=== PATIENT | female | born 1985 | race African-American/Black ===

== ENCOUNTER → 2017-11-30 | Outpatient (REF) | payer BC ==
[2017-12-02 14:17] LABS: HPV HYBRID CAPTURE II Negative (Negative)
== END ==
LOC: M LAB REF 14:44
DX: Z11.51 Encounter for screening for human papillomavirus (HPV) (principal)
CPT/HCPCS: G0123

== ENCOUNTER → 2017-12-03 | Outpatient (CLI) | payer BC | LOC: M RAD 17:29 | DX: D25.2 Subserosal leiomyoma of uterus (principal); N83.202 Unspecified ovarian cyst, left side; Z97.5 Presence of (intrauterine) contraceptive device | CPT/HCPCS: 76856 ==

== ENCOUNTER 2018-03-30 16:33 | Emergency (ER) | payer OTHER, BC | END 2018-03-30 20:09 | disposition home or self-care (01) | LOC: M ED 16:33 | DX: S06.0X0A Concussion without loss of consciousness, initial encounter (principal); S80.11XA Contusion of right lower leg, initial encounter; V43.52XA Car driver injured in collision with other type car in traffic accident, initial encounter; Y92.410 Unspecified street and highway as the place of occurrence of the external cause; Y93.9 Activity, unspecified; Y99.9 Unspecified external cause status | CPT/HCPCS: 72125 ==

== ENCOUNTER → 2018-11-16 | Outpatient (CLI) | payer BC ==
[~2018-11-16] MED LIST: CYCL5TAB PO; NAPR-50 PO
[2018-11-16 08:51] LABS: HEMATOCRIT 35.1 % (36.0-47.0); HEMOGLOBIN 10.9 g/dl (12.0-15.5); MEAN CORPUSCULAR HEMOGLOBIN 25.8 pg (27.0-33.0); MEAN CORPUSCULAR HGB CONC 31.1 g/dl (32.0-36.5); MEAN CORPUSCULAR VOLUME 83.2 fl (80.0-96.0); PLATELET COUNT, AUTOMATED 276 10^3/uL (150-450); RED BLOOD COUNT 4.22 10^6/uL (4.00-5.40); WHITE BLOOD COUNT 4.3 10^3/uL (4.0-10.0)
[2018-11-16 09:21] LABS: ALBUMIN 3.7 GM/DL (3.2-5.2); ALT/SGPT 17 U/L (12-78); BILIRUBIN,TOTAL 0.3 MG/DL (0.2-1.0); BLOOD UREA NITROGEN 9 MG/DL (7-18); CALCIUM LEVEL 8.9 MG/DL (8.5-10.1); CARBON DIOXIDE LEVEL 27 MEQ/L (21-32); CHLORIDE LEVEL 105 MEQ/L (98-107); CHOLESTEROL LEVEL 168 MG/DL (<200); CREATININE FOR GFR 0.82 MG/DL (0.55-1.30); GLOMERULAR FILTRATION RATE > 60.0 (>60); GLUCOSE, FASTING 86 MG/DL (70-100); HDL CHOLESTEROL 56 MG/DL (>40); IRON (FE) 30 UG/DL (50-170); LDL CHOLESTEROL 100 MG/DL (<100); NON-HDL-C 112 MG/DL; PERCENT SATURATION 7.4 % (13.2-45.0); POTASSIUM SERUM 4.3 MEQ/L (3.5-5.1); SODIUM LEVEL 138 MEQ/L (136-145); THYROID STIMULATING HORMONE 0.953 uIU/ML (0.358-3.740); TOTAL IRON BINDING CAPACITY 407 UG/DL (250-450); TRIGLYCERIDES LEVEL 59 MG/DL (<150)
[2018-11-16 10:22] LABS: TOTAL 25(OH) VITAMIN D 27.7 NG/ML (30.0-100.0)
[2018-11-16 17:19] LABS: HEMOGLOBIN A1c 5.8 %
[2018-11-18 07:44] LABS: VITAMIN B12 LEVEL 697 PG/ML (232-1245)
== END ==
LOC: M LAB 07:54
PROVIDERS: ATTEND Family Medicine
DX: R53.83 Other fatigue (principal); E03.9 Hypothyroidism, unspecified; D64.9 Anemia, unspecified

== ENCOUNTER → 2019-06-13 | Outpatient (POV) | payer BC ==
[~2019-06-13] VITALS: Ht 160 cm; Wt 74.5 kg
[~2019-06-13] MED LIST changes: +KETO10TAB PO; -NAPR-50 PO; +NAPR-837 PO; +PERCOCET PO; +ZOFR4TAB16 PO
[2019-06-13 11:07] VITALS: BP 134/75
--- NOTE | 2019-06-14 08:45 | IRCOV ---
[facility] IR Consult Office Visit IR Consult Office Visit DATE: Jun 13, 2019 REASON FOR CONSULTATION/CHIEF COMPLAINT: Menorrhagia. HISTORY OF PRESENT ILLNESS: 33 female presents with 2 years of intensely heavy periods. Patient describes using tampons and pads in unison. She reports soaking through a pack of tampons as well as heavy-duty pads per hour for at least 2 days every month. Feels fatigued at times of cycles. History of anemia but intolerant of iron tablets. Mild cramping associated with cycles. Describes deep dyspareunia. Also feels bloated and all the time. No problems with urination or defecation. No prior pregnancies and does not plan to have children. Compliant with Pap smears and no history of abnormal Pap smears. Patient is otherwise active and healthy. Works out every day. ALLERGIES: Please see below. HOME MEDICATIONS: Please see below. PAST MEDICAL HISTORY: 1. Nonsignificant. PAST SURGICAL HISTORY: 1. Nonsignificant. FAMILY HISTORY: Mother had fibroids. SOCIAL HISTORY: Lives with fiance. Nonsmoker, no alcohol no drugs. REVIEW OF SYSTEMS: Otherwise negative. PHYSICAL EXAMINATION: VITAL SIGNS: Please see below. GENERAL APPEARANCE: Comfortable at rest. HEENT: No scleral icterus. RESPIRATORY: Clear breath sounds bilaterally. CARDIOVASCULAR: Normal heart rate. ABDOMEN: Soft nontender. Firmness to pelvis. EXTREMITIES: No edema. Calf nontender. NEUROLOGICAL: Alert and oriented. PSYCHIATRIC: Appropriate to circumstance. LABORATORY DATA: Please see below. Imaging: I personally reviewed the most recent ultrasound of the pelvis. There are fibroids present within the uterus. On physical examination, these are likely increased in size from time of imaging. ASSESSMENT/PLAN: 33 female otherwise fit and healthy presents with torrential menorrhagia, anemia and known fibroids. Patient would benefit from uterine f ibroid embolization. We discussed the risks and benefits of the procedure and what to expect. Patient would like to proceed. I will schedule the patient for the procedure under moderate sedation. I spent 30 minutes in consultation with the patient. Thank you for this referral. Allergies Coded Allergies: No Known Allergies (Unverified , 12/08/17) Home Medications Scheduled PRN Cyclobenzaprine HCl (Cyclobenzaprine HCl), 5 MG PO QHSP PRN for PAIN Naproxen (Naprosyn), 500 MG PO Q12HP PRN for PAIN VS, I&O, 24H, Fishbone Vital Signs/I&O Vital Signs Date Time Temp Pulse Resp B/P (MAP) Pulse Ox O2 Delivery O2 Flow Rate FiO2 06/13/19 11:07 98.9 73 16 134/75 (94) 100 MARÍA FRYE MD Jun 14, 2019 08:45
== END ==
LOC: M IRPOV 10:59
PROVIDERS: ATTEND Radiology Diagnostic Radiology
DX: N92.0 Excessive and frequent menstruation with regular cycle (principal); D25.9 Leiomyoma of uterus, unspecified; D64.9 Anemia, unspecified

== ENCOUNTER 2019-07-07 06:00 | Observation (INO) | payer BC ==
[~2019-07-07] VITALS: Ht 160 cm; Wt 68.0 kg
[~2019-07-07 06:00] MED LIST changes: -KETO10TAB PO; -PERCOCET PO; -ZOFR4TAB16 PO
[2019-07-07] MEDS ORDERED: KETOROLAC 30 MG/ML VIAL (J1885) IV SCH (06:45)
[2019-07-07] MEDS ORDERED: NITROGLYCERIN IN D5W 25MG/250ML (100MCG/ML) IV ONE (06:45)
[2019-07-07] MEDS ORDERED: VERAPAMIL HCL 5 MG/2 ML VIAL IV ONE (06:45)
[2019-07-07] MEDS ORDERED: HEPARIN SOD (PORCINE) 5000 UNITS/ML VIAL IV ONE (06:45)
[2019-07-07] MEDS ORDERED: VANCOMYCIN HCL 500 MG/10 ML VIAL (J3370) As Ordered ONE (06:45)
[2019-07-07] MEDS ORDERED: diphenhydrAMINE INJ 50MG/ML VIAL (J1200) IV ONE (06:45)
[2019-07-07] MEDS ORDERED: ceFAZolin 1GM INJ (J0690 PER 500MG) As Ordered ONE (06:49)
[2019-07-07] MEDS ORDERED: diphenhydrAMINE INJ 50MG/ML VIAL (J1200) As Ordered ONE (06:54)
[2019-07-07] MEDS ORDERED: fentaNYL 100 MCG/2 ML INJECTION (J3010) As Ordered ONE ×2 (06:55→08:54)
[2019-07-07] MEDS ORDERED: ISOVUE-300 61% 50ML VIAL (Q9967) As Ordered ONE ×3 (06:55→08:34)
[2019-07-07] MEDS ORDERED: LIDOCAINE 1% MDV 20ML VIAL As Ordered ONE (06:55)
[2019-07-07] MEDS ORDERED: MIDAZOLAM INJ 2 MG/2 ML VIAL (J2250) As Ordered ONE ×2 (06:55→08:54)
[2019-07-07] MEDS ORDERED: KETOROLAC 30 MG/ML VIAL (J1885) As Ordered ONE (07:01)
[2019-07-07] MEDS ORDERED: NITROGLYCERIN IN D5W 25MG/250ML (100MCG/ML) As Ordered ONE (07:01)
[2019-07-07] MEDS ORDERED: HEPARIN 1,000 UNITS/ML 10ML VIAL (FOR RADIOLOGY& DIALYSIS ONLY) As Ordered ONE (07:01)
[2019-07-07] MEDS ORDERED: EMBOSPHERE MICROSPHERES 500-700UM(MICRONS) 2ML SYRINGE As Ordered ONE ×2 (08:19→08:33)
--- NOTE | 2019-07-07 09:55 | POST-OPPD ---
Postoperative Procedure Note Date Of Procedure: Jul 07, 2019 Time Of Procedure: 09:54 PREOPERATIVE DIAGNOSIS: uterine fibroids. menorrhagia POSTOPERATIVE DIAGNOSIS: uterine fibroids. menorrhagia FINDINGS: hypertrophied uterine arteries and fibroids. PROCEDURE: GINA SURGEON: melissa ANESTHESIA: moderate sedation ESTIMATED BLOOD LOSS: < 5 ml COMPLICATIONS: none POSTOPERATIVE CONDITION: stable MARÍA FRYE MD Jul 07, 2019 09:55
[2019-07-07] MEDS ORDERED: PERCOCET 5MG/325MG TAB As Ordered ONE ×2 (10:19→12:47)
[2019-07-07] MEDS ORDERED: PROMETHAZINE INJ 25 MG/ML VIAL (J2550) As Ordered ONE (10:33)
[2019-07-07] MEDS ORDERED: NS 1,000 ML IV SCH (11:15)
[2019-07-07] MEDS ORDERED: PROMETHAZINE INJ 25 MG/ML VIAL (J2550) IV PRN (11:30)
[2019-07-07] MEDS ORDERED: ONDANSETRON 4MG/2ML VIAL (J2405) IV PRN (11:30)
[2019-07-07] MEDS ORDERED: PILL CUTTER 1 EACH XX PRN (12:00)
[2019-07-07] MEDS ORDERED: HYDROmorphone 2 MG TAB PO PRN (12:00)
[2019-07-07] MEDS ORDERED: PROMETHAZINE 25 MG TAB PO PRN (15:00)
[2019-07-07 16:00] VITALS: BP 144/74
--- NOTE | 2019-07-07 16:37 | REP ---
IR Trans radial Uterine Fibroid Embolization. IR pelvic arteriogram. IR Bilateral uterine artery sub selective catheterization. IR bilateral uterine artery embolization. IR moderate sedation. Clinical Information: Uterine fibroids. Menorrhagia. Physician: Dr William.Procedure: The patient was advised of the benefits, risks, and alternatives of the procedure and informed consent was obtained.A time out was performed with verification of the patient's name, MRN, site of procedure, and type of procedure to be performed. The patient was positioned in the supine position on the angiographic table. The site was prepped and draped in the usual sterile fashion.Moderate sedation was performed by the physician including the presence of an independent trained observer that assisted in monitoring the patient's level of consciousness and physiological status. Following the administration of Fentanyl and Versed, the physician spent 90 minutes of continuous [id number] time with the patient. A Barbeu test was performed of the left wrist and this demonstrates type A wave form. A checker product design radiograph reveals an IUD in place. Ultrasound of the left wrist was performed and this demonstrates a patent pulsatile left radial artery measuring 2.5 mm. The left radial artery was accessed with a dedicated radial access kit. An 018 wire was advanced through the needle into the radial artery. The needle was removed and a 5-Norwegian slender radial sheath was advanced over the wire. A radial cocktail of 2.5 mg Verapamil, nitroglycerin 200 mcg and heparin 3000 units was administered through the radial sheath using hemodilution technique. A 5-Norwegian pigtail catheter in conjunction with a Glidewire was advanced through the radial sheath under fluoroscopy guidance and used to catheterize the infra renal abdominal aorta. An infra renal abdominal aortogram and pelvic arteriogram was performed and this demonstrates enlarged bilateral uterine arteries supplying hypervascular fibroids. No ovarian artery supply to the fibroids. The pigtail catheter was exchanged over a wire for a vert catheter. This was used to catheterize the right internal iliac artery. An arteriogram was performed and this demonstrates patent anterior and posterior division branches of the right internal iliac artery. The origin of the uterine artery is seen. A micro catheter and micro wire were advanced through the diagnostic catheter and used to sub selectively catheterize the distal right uterine artery. An arteriogram was performed and this demonstrates hypervascular fibroid supply. No reflux of contrast from positioned catheter into any non target vessels. Multiple vials of 5-700 micron Embospheres were used to embolize the right uterine artery from this location. A postembolization arteriogram was performed which demonstrates appropriate stasis in the right uterine artery. The micro catheter was removed. The diagnostic catheter in conjunction with a Glidewire was used to catheterize the left internal iliac artery. An arteriogram was performed and this demonstrates patent posterior and anterior division of the left internal iliac artery. The diagnostic catheter in conjunction with the Glidewire was used to selectively catheterize the left uterine artery. An arteriogram was performed and this demonstrates hypertrophied left uterine artery. Micro catheter and micro wire were inserted through the diagnostic catheter and used to subselectively catheterize the distal left uterine artery. An arteriogram was performed and this demonstrates hypertrophied distal uterine artery and supply to hypervascular fibroids. Vials of 5-700 micron Embospheres were used to embolize the left uterine artery from this location. The micro catheter was removed. A post embolization arteriogram was performed from the infrarenal abdominal aorta. This demonstrates satisfactory bilateral uterine artery embolization and no further supply to fibroids. The catheter was removed. A TR band was applied per protocol to the left wrist and radial sheath was removed, hemostasis achieved. Patient tolerated the procedure well and was transferred to PRU in stable condition. Complications: None. Estimated blood loss: Less than 5 ml. Impression: 1. Pelvic arteriogram demonstrates bilateral enlarged hypertrophied uterine arteries supplying uterine fibroids. 2. Successful bilateral uterine artery embolization. 3. Patient to follow-up in IR clinic in 2 weeks. Thank you for this referral. Electronically Signed by Lizette William MD 07/07/2019 04:35 P
[2019-07-07] MEDS ORDERED: HYDROMORPHONE HCL 0.5 MG/ 0.5 ML SYRINGE (J1170 PER 1) IV PRN (17:00)
[2019-07-07] MEDS: KETOROLAC TROMETHAMINE 10 MG TAB PO SCH (17:05)
[2019-07-07] MEDS ORDERED: KETO10TAB PO (17:24)
[2019-07-07] MEDS ORDERED: ZOFR4TAB16 PO (17:24)
[2019-07-07] MEDS ORDERED: PERCOCET PO (17:24)
[2019-07-07] MEDS ORDERED: KETOROLAC TROMETHAMINE 10 MG TAB PO SCH (18:00)
[2019-07-07] MEDS: NS 1,000 ML IV SCH (20:07)
[2019-07-07] MEDS: PERCOCET 5MG/325MG TAB PO PRN (20:07)
[2019-07-07 22:00] VITALS: BP 144/75
[2019-07-08] MEDS: KETOROLAC TROMETHAMINE 10 MG TAB PO SCH ×2 (00:26→06:06)
[2019-07-08] MEDS: NS 1,000 ML IV SCH ×2 (03:16→04:35)
[2019-07-08] MEDS: PERCOCET 5MG/325MG TAB PO PRN (04:13)
[2019-07-08 06:00] VITALS: BP 137/75
== END 2019-07-08 08:37 | disposition home or self-care (01) ==
LOC: M IRPRO 06:00 → M MSPAV 15:11
PROVIDERS: ADMIT Radiology Diagnostic Radiology; ATTEND Radiology Diagnostic Radiology
DX: D25.9 Leiomyoma of uterus, unspecified (principal); N92.0 Excessive and frequent menstruation with regular cycle; Z97.5 Presence of (intrauterine) contraceptive device
CPT/HCPCS: 36247; 37243; 99152; 99153; C1769; C1887; C1894; J0690; J1170; J1200; J1885; J2250; J3010; J3370; Q9967

== ENCOUNTER → 2019-07-25 | Outpatient (POV) | payer BC ==
[~2019-07-25] VITALS: Ht 160 cm; Wt 75.0 kg
[~2019-07-25] MED LIST changes: +KETO10TAB PO; +PERCOCET PO; +ZOFR4TAB16 PO
[2019-07-25 15:00] VITALS: BP 141/72
--- NOTE | 2019-07-25 17:17 | IRPN ---
[facility] IR Progress Note IR Progress Note DATE: Jul 25, 2019 FOLLOW-UP: 2 weeks status post uterine fibroid embolization. Patient feels well. No fevers or chills. No further pain. Started her menstruation 10 days after the procedure. Already describes that it's roller cleaner. She feels her energy levels are improved. No further cravings for salt. She feels much less bloated. Mild cramping with periods which is new for her. ON EXAMINATION: Left radial artery access site: no swelling, no pulsatile mass, no redness or tenderness. No fluctuance. Good radial pulses. Fingers are warm and well-perfused. IMPRESSION: Doing well status post transradial uterine fibroid embolization. Patient will continue to notice improvements and establish a new baseline cycle. I will follow her up in 6 months. Thank you for this referral. Allergies Coded Allergies: No Known Allergies (Unverified , 12/08/17) VS,Fishbone, I+O VS, Fishbone, I+O Vital Signs Date Time Temp Pulse Resp B/P (MAP) Pulse Ox O2 Delivery O2 Flow Rate FiO2 07/25/19 15:00 98.9 89 16 141/72 (95) 100 MARÍA FRYE MD Jul 25, 2019 17:17
== END ==
LOC: M IRPOV 15:01
PROVIDERS: ATTEND Radiology Diagnostic Radiology
DX: Z48.817 Encounter for surgical aftercare following surgery on the skin and subcutaneous tissue (principal); D25.9 Leiomyoma of uterus, unspecified

== ENCOUNTER → 2019-08-26 | Outpatient (CLI) | payer BC ==
[2019-08-26 09:20] LABS: HEMATOCRIT 31.9 % (36.0-47.0); HEMOGLOBIN 8.9 g/dl (12.0-15.5); MEAN CORPUSCULAR HGB CONC 27.9 g/dl (32.0-36.5); MEAN CORPUSCULAR VOLUME 71.8 fl (80.0-96.0); PLATELET COUNT, AUTOMATED 313 10^3/uL (150-450); RED BLOOD COUNT 4.44 10^6/uL (4.00-5.40); WHITE BLOOD COUNT 4.5 10^3/uL (4.0-10.0)
[2019-08-26 09:52] LABS: BLOOD UREA NITROGEN 12 MG/DL (7-18); CREATININE FOR GFR 0.84 MG/DL (0.55-1.30); GLUCOSE, FASTING 81 MG/DL (70-100)
[2019-08-26 09:53] LABS: ALBUMIN 3.9 GM/DL (3.2-5.2); ALT/SGPT 16 U/L (12-78); BILIRUBIN,TOTAL 0.6 MG/DL (0.2-1.0); CALCIUM LEVEL 9.4 MG/DL (8.5-10.1); CARBON DIOXIDE LEVEL 28 MEQ/L (21-32); CHLORIDE LEVEL 107 MEQ/L (98-107); CHOLESTEROL LEVEL 170 MG/DL (<200); CHOLESTEROL RISK RATIO 2.463 (<5); GLOMERULAR FILTRATION RATE > 60.0 (>60); HDL CHOLESTEROL 69 MG/DL (>40); IRON (FE) 28 UG/DL (50-170); LDL CHOLESTEROL 90 MG/DL (<100); NON-HDL-C 101 MG/DL; PERCENT SATURATION 5.9 % (13.2-45.0); POTASSIUM SERUM 4.6 MEQ/L (3.5-5.1); SODIUM LEVEL 139 MEQ/L (136-145); THYROID STIMULATING HORMONE 0.669 uIU/ML (0.358-3.740); TOTAL IRON BINDING CAPACITY 477 UG/DL (250-450); TOTAL PROTEIN 7.9 GM/DL (6.4-8.2); TRIGLYCERIDES LEVEL 54 MG/DL (<150)
== END ==
LOC: M LAB 08:30
PROVIDERS: ATTEND Family Medicine
DX: D64.9 Anemia, unspecified (principal); R53.83 Other fatigue; E03.9 Hypothyroidism, unspecified